=== PATIENT | male | born 1960 | race Caucasian/White ===

== ENCOUNTER → 2017-08-13 | Outpatient (CLI) | payer BC ==
[~2017-08-13] MED LIST: ASCAUNK; GLCSUNK; LCHC12280 TD; LEVOPOW36 PO; MULT-506 PO; OMEG10007 PO; OPTIRAY 320 IV PRN; VTMB12UNK; VTMEUNK; ZINC1CAP PO; [UNRECOGNIZED DRUG - CODE] BT; [UNRECOGNIZED DRUG - REMARK]; [UNRECOGNIZED DRUG - SUPPLY]
--- NOTE | 2017-08-13 10:32 | DIAGNOSTIC IMAGING REPORT ---
CT OF THE CHEST WITH IV CONTRAST CLINICAL HISTORY: RECTAL CA COMPARISON STUDY: Chest x-ray dated 01/25/2011, PET/CT scan dated 03/11/2016 TECHNIQUE: Following the IV administration of 120 mL of Optiray-320, CT of the thorax was performed from the thoracic inlet to the lung bases. Images are reviewed in the axial, sagittal, and coronal planes. IV contrast was administered without complication. A dose lowering technique was utilized adhering to the principles of ALARA. CT DOSE: 517.97 mGy.cm FINDINGS: Thyroid: There is a 6 mm right lobe thyroid nodule. Thoracic aorta: There is aortic tortuosity. There is no evidence of aneurysmal dilatation. Pulmonary vasculature: The pulmonary trunk is normal in caliber. There are no central filling defects identified to suggest pulmonary embolus. Note that this examination was not protocoled for the evaluation of pulmonary emboli. HEART: The heart is normal in size and configuration, without pericardial effusion. Lungs and pleural spaces: No pleural effusions are visualized. There is no focal pulmonary consolidation. There are no suspicious pulmonary masses. Mediastinum: There is no evidence of pathologic mediastinal lymphadenopathy. Kacy: There is no evidence of pathologic hilar adenopathy. Axilla: There is no evidence of pathologic axillary lymphadenopathy. Upper abdomen: Partially visualized upper abdominal viscera is within normal limits. Skeletal structures: There are no lytic or blastic osseous lesions. IMPRESSION: No acute intrathoracic findings. No evidence of intrathoracic metastatic disease. Electronically signed by: John Plunkett M.D. 08/13/2017 10:30 AM Dictated Date/Time: 08/13/2017 10:27 AM
--- NOTE | 2017-08-13 10:38 | DIAGNOSTIC IMAGING REPORT ---
ABD/PELVIS IV AND ORAL CONT CT DOSE: HISTORY: Rectal carcinoma RECTAL CA TECHNIQUE: Multiaxial CT images of the abdomen and pelvis were performed following the use of intravenous and oral contrast. A dose lowering technique was utilized adhering to the principles of ALARA. COMPARISON STUDY: PET scan dated 03/11/2016. CT exam dated 10/19/2010 FINDINGS: Lung bases are considered clear. Mild fatty infiltration of liver. Liver is uniform in enhancement characteristics. There are findings of a subtotal colectomy. There is a right-sided ostomy. Adrenal glands are normal. Kidneys enhance uniformly. Spleen is unremarkable throughout. Pancreas is uniform throughout. There is no dilatation of the pancreatic or biliary ductal systems. Gallbladder is mildly contracted. Bowel pattern is considered nonobstructive. Mild bladder wall thickening. No significant abdominal retroperitoneal or pelvic steve change. Inguinal regions are unremarkable. Osseous structures show no true lytic or blastic process. IMPRESSION: No significant abnormality identified within the abdomen or pelvis. Stable chronic and postoperative change. No evidence for metastatic disease. The above report was generated using voice recognition software. It may contain grammatical, syntax or spelling errors. Electronically signed by: Ismael Dooley M.D. 08/13/2017 10:37 AM Dictated Date/Time: 08/13/2017 10:31 AM
== END | disposition home or self-care (01) ==
LOC: C.CTS 09:47
PROVIDERS: ATTEND Nurse Practitioner Family
DX: C20 Malignant neoplasm of rectum (principal)